=== PATIENT | male | born 2000 | race Caucasian/White ===

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

== ENCOUNTER → 2023-01-25 | Outpatient (CLI) | payer OTHER ==
[~2023-01-25] MED LIST changes: +IBUPROFEN600 MG PO; +SILVADENE,SSD C50 GM T
== END | disposition home or self-care (01) ==
LOC: COVID19 09:22
PROVIDERS: ATTEND Internal Medicine
DX: Z11.52 Encounter for screening for COVID-19 (principal); Z20.822 Contact with and (suspected) exposure to COVID-19

== ENCOUNTER 2024-07-22 12:09 | Emergency (ER) | payer SELFPAY ==
[~2024-07-22] VITALS: Ht 167.6 cm; Wt 113.4 kg
[2024-07-22] MEDS ORDERED: LOPERAMIDE HCL2 MG PO (14:33)
[2024-07-22] MEDS ORDERED: Ondansetron4 MG PO (14:33)
== END 2024-07-22 14:41 | disposition home or self-care (01) ==
LOC: ED 12:09
DX: K52.9 Noninfective gastroenteritis and colitis, unspecified (principal); Z20.822 Contact with and (suspected) exposure to COVID-19; F17.200 Nicotine dependence, unspecified, uncomplicated; Z98.890 Other specified postprocedural states